=== PATIENT | male | born 1995 | race Caucasian/White ===

== ENCOUNTER 2019-07-03 10:54 | Emergency (ER) | payer OTHER ==
[~2019-07-03] VITALS: Ht 172.7 cm; Wt 115.7 kg
[2019-07-03] MEDS ORDERED: ZOLOFT100 MG PO (11:31)
[2019-07-03] MEDS ORDERED: RISPERDAL1 MG PO (11:31)
[2019-07-03] MEDS ORDERED: KAPSPARGO SPRIN50 MG PO (11:32)
== END 2019-07-03 16:11 | disposition home or self-care (01) ==
LOC: ER 10:54
DX: R10.31 Right lower quadrant pain (principal); R10.11 Right upper quadrant pain